=== PATIENT | female | born 1985 | race Two or more races ===

== ENCOUNTER → 2019-11-24 | Outpatient (CLI) | payer OTHER ==
--- NOTE | 2020-01-12 13:57 | REP ---
RIGHT FOOT SERIES CLINICAL: Trauma. TECHNIQUE: AP, lateral, and bilateral oblique views of the right foot. FINDINGS: No acute fracture or dislocation. Skeletal structures, joint spaces, and surrounding soft tissues appear normal. IMPRESSION: No acute fracture or dislocation. MTDD
== END ==
LOC: M LRY 14:13
PROVIDERS: ATTEND Nurse Practitioner Family
DX: M25.571 Pain in right ankle and joints of right foot (principal)